=== PATIENT | male | born 1955 | race Two or more races ===

== ENCOUNTER 2018-07-05 11:05 | Inpatient (IN) | payer OTHER ==
[~2018-07-05] VITALS: Ht 170.2 cm; Wt 68.5 kg
--- NOTE | 2018-07-05 11:10 | NUR ---
VALERI FROM [facility]: SENT BY PMD FOR LEFT FOOT WOUND DEBRIDEMENT. PATIENT IS AWAKE AND ALERT. NOT IN DISTRESS. AFEBRILE. LEFT FOOT NOTED WITH OPEN WOUND, GREENISH AND REDDISH IN COLOR. VSS.
[2018-07-05 11:56] LABS: BASOPHILS # (AUTO) 0.1 /CMM (0.0-0.2); BASOPHILS % (AUTO) 0.8 % (0.0-2.0); EOSINOPHILS % (AUTO) 1.2 % (0.0-6.0); HEMATOCRIT 32 % (39-51); HEMOGLOBIN 10.9 g/dL (13.5-17.5); LYMPHOCYTES # (AUTO) 1.2 /CMM (0.8-4.8); LYMPHOCYTES % (AUTO) 6.9 % (20.0-44.0); MEAN CORPUSCULAR HGB CONC 34 g/dl (31.0-36.0); MEAN CORPUSCULAR VOLUME 84 fL (80-96); MONOCYTES # (AUTO) 0.5 /CMM (0.1-1.30); MONOCYTES % (AUTO) 2.9 % (2.0-12.0); NEUTROPHILS # (AUTO) 14.9 /CMM (1.8-8.9); NEUTROPHILS % (AUTO) 88.2 % (43.0-81.0); RDW COEFFICIENT OF VARIATION 18.1 (11.5-15.0); RED BLOOD CELL COUNT(AUTO) 3.82 MIL/uL (4.5-6.0); WHITE BLOOD COUNT (AUTO) 16.9 K/uL (4.3-11.0)
[2018-07-05 11:57] LABS: PLATELET COUNT (AUTO) 905 /CMM (150-450)
--- NOTE | 2018-07-05 11:57 | NUR ---
IV ACCESS STARTED. BLOOD DRAWN FOR LABS BY REEL HOOKER.
[2018-07-05 12:03] LABS: CALCIUM, SERUM 8.1 mg/dL (8.5-10.1); CREATININE 1.4 mg/dL (0.6-1.3); POTASSIUM 3.9 mmol/L (3.5-5.1)
[2018-07-05 12:08] LABS: INR 0.95 (0.85-1.15)
[2018-07-05 12:09] LABS: ALBUMIN 2.2 g/dL (3.4-5.0); BILIRUBIN,TOTAL 0.2 mg/dL (0.2-1.0); TOTAL PROTEIN, SERUM 7.1 g/dL (6.4-8.2)
[2018-07-05] MEDS ORDERED: CLON0.3P TD (12:19)
[2018-07-05] MEDS ORDERED: ASPI-1169 PO (12:19)
[2018-07-05] MEDS ORDERED: BLOO-668 IN (12:19)
[2018-07-05] MEDS ORDERED: TAMS-12 PO (12:19)
[2018-07-05] MEDS ORDERED: MULT-447 PO (12:19)
[2018-07-05] MEDS ORDERED: ALLO100T PO (12:19)
[2018-07-05] MEDS ORDERED: INSU100V27 SQ (12:19)
[2018-07-05] MEDS ORDERED: ASCO500T9 PO (12:19)
[2018-07-05] MEDS ORDERED: PANT40TA4 PO (12:19)
[2018-07-05] MEDS ORDERED: BISA10SU8 RC (12:19)
[2018-07-05] MEDS ORDERED: SENN-167 PO (12:19)
[2018-07-05] MEDS ORDERED: ISOS30TA6 PO (12:19)
[2018-07-05] MEDS ORDERED: ACET-868 PO ×2 (12:19)
[2018-07-05] MEDS ORDERED: FERR325T23 PO (12:19)
[2018-07-05] MEDS ORDERED: IPRA3AMP23 IH (12:19)
[2018-07-05] MEDS ORDERED: ARGI1POW13 PO (12:19)
[2018-07-05] MEDS ORDERED: INSU100V7 SQ (12:19)
[2018-07-05] MEDS ORDERED: FEBU80TA PO (12:19)
[2018-07-05] MEDS ORDERED: AMIN30LI4 PO (12:19)
[2018-07-05] MEDS ORDERED: HYDR-552 PO (12:19)
[2018-07-05] MEDS ORDERED: HYDR100T27 PO (12:19)
[2018-07-05] MEDS ORDERED: DOCU-141 PO (12:19)
[2018-07-05] MEDS ORDERED: LEVO50TA8 PO (12:19)
[2018-07-05] MEDS ORDERED: OMEG1CAP PO (12:19)
[2018-07-05] MEDS ORDERED: MEGE40TA PO (12:19)
[2018-07-05] MEDS ORDERED: SENNOSIDES 8.6 MG TABLET PO PRN ×2 (12:30→13:45)
[2018-07-05] MEDS ORDERED: HYDROCODONE/APAP 5/325MG 1 EACH TABLET PO PRN ×4 (12:30→13:45)
[2018-07-05] MEDS ORDERED: BISACODYL SUPP (10 MG) 10 MG/SUPP.RECT SUPP.RECT RC PRN ×2 (12:30→13:45)
[2018-07-05] MEDS ORDERED: BLOOD SUGAR DIAGNOSTIC 1 EACH STRIP IN SCH (12:30)
[2018-07-05] MEDS ORDERED: ACETAMINOPHEN 325 MG TABLET PO PRN ×2 (12:30→13:45)
--- NOTE | 2018-07-05 12:48 | NUR ---
REPORT GIVEN TO ADIN WASHINGTON FOR MS [id number].
[2018-07-05] MEDS ORDERED: hydrALAZINE HCL 10 MG TABLET PO ONE ×2 (13:00)
[2018-07-05] MEDS ORDERED: VANCOMYCIN 1 GM in IV D5W 250 ML IV SCH (13:00)
[2018-07-05 16:00] VITALS: BP 136/54
[2018-07-05] MEDS ORDERED: VANCOMYCIN 1 GM in IV D5W 250 ML IV ONE (16:00)
[2018-07-05] MEDS ORDERED: FEE PK DOSING 1 MIN EA MC ONE (16:23)
[2018-07-05] MEDS ORDERED: FERROUS SULFATE (325 MG) 325 MG/TAB TABLET PO SCH (17:00)
[2018-07-05] MEDS: MEGESTROL ACETATE 40 MG TABLET PO SCH (17:00)
[2018-07-05] MEDS ORDERED: DOCUSATE SODIUM 100 MG CAPSULE PO SCH (17:00)
[2018-07-05] MEDS: DOCUSATE SODIUM 100 MG CAPSULE PO SCH (17:00)
[2018-07-05] MEDS ORDERED: MEGESTROL ACETATE 40 MG TABLET PO SCH (17:00)
--- NOTE | 2018-07-05 17:04 | NUR ---
MS RN NOTES: PAIN MEDICATION ORDER DR. ROBERTS NOTIFIED OF PT'S CURRENT PAIN MANAGEMENT AND HOW IT IS NOT EFFECTIVE FOR THE PT'S CURRENT PAIN LEVEL RATED A 6/10. PER MD, ORDER "NORCO [id number] Q6HR" ORDER IMPUTED. WILL ADMINISTER MEDICATION
[2018-07-05] MEDS: BLOOD SUGAR DIAGNOSTIC 1 EACH STRIP IN SCH ×2 (17:33→21:43)
[2018-07-05] MEDS: FERROUS SULFATE (325 MG) 325 MG/TAB TABLET PO SCH (17:35)
[2018-07-05] MEDS: HYDROCODONE/APAP 5/325MG 1 EACH TABLET PO PRN (17:36)
[2018-07-05] MEDS: INSULIN REGULAR, HUMAN 100 UNIT/ML 3 ML VIAL SQ PRN ×2 (17:52→21:48)
[2018-07-05] MEDS ORDERED: DEXTROSE 50%-WATER 50 ML DISP.SYRIN IV PRN (18:00)
[2018-07-05] MEDS ORDERED: PIPERACILLIN /TAZOBACTAM 4.5 G in IV D5W 50 ML IV SCH (18:00)
--- NOTE | 2018-07-05 18:37 | NUR ---
MS RN CLOSING NOTES PT REMAINS STABLE. ALL NEEDS WERE MET DURING SHIFT AND ORDERS CARRIED OUT ACCORDINGLY. ALL DUE MEDS GIVEN. PRN SKIN CARE RENDERED. IV REMAINS PATENT AND INTACT. PT TOLERATING IV ABX WELL. AWAITING WOUND CONSULT FOR DEBRIDEMENT. SAFETY MEASURES REMAIN IN PLACE. WILL ENDORSE TO NIGHTSHIFT NURSE FOR RODERICK
[2018-07-05] MEDS: PIPERACILLIN /TAZOBACTAM 4.5 G in IV D5W 50 ML IV SCH ×2 (18:53→23:28)
--- NOTE | 2018-07-05 19:10 | NUR ---
MS RN INITIAL NOTES Received patient A/OX3, on supine position on bed, with patient peripheral IV line RFA G#20, SL. On RA, no SOB/respiratory distress noted. No complaint made at this time. Kept on bed comfortable. Will continue to monitor accordingly.
[2018-07-05 20:09] VITALS: BP 133/58
[2018-07-06] MEDS: VANCOMYCIN 0.75 GM in IV D5W 250 ML IV SCH ×2 (03:05→15:42)
[2018-07-06] MEDS ORDERED: VANCOMYCIN 1 GM in IV D5W 250 ML IV SCH (04:00)
[2018-07-06] MEDS: PIPERACILLIN /TAZOBACTAM 4.5 G in IV D5W 50 ML IV SCH ×4 (05:13→23:03)
[2018-07-06] MEDS: BLOOD SUGAR DIAGNOSTIC 1 EACH STRIP IN SCH ×4 (06:31→21:01)
[2018-07-06] MEDS: INSULIN REGULAR, HUMAN 100 UNIT/ML 3 ML VIAL SQ PRN ×4 (06:31→21:01)
--- NOTE | 2018-07-06 07:04 | NUR ---
MS RN CLOSING NOTES Patient asleep on semi-Lee's position, with patent peripheral IV line RFA G#20 SL. No new complaints made. Afebrile the whole shift. All needs attended. Call light within easy reach. Endorsed.
--- NOTE | 2018-07-06 07:26 | NUR ---
MS RN OPENING NOTES PATIENT RECEIVED AWAKE IN BED IN NO ACUTE SIGNS OF DISTRESS. HOB ELEVATED. A/O X3. ABLE TO MAKE NEEDS KNOWN, DENIES PAIN OR ANY DISCOMFORTS AT THIS TIME. ON ROOM AIR, BREATHING EVEN AND UNLABORED. IV ACCESS ON RFA INTACT AND PATENT, SL WITH NO REDNESS AT SITE AND NO S/S OF INFILTRATIONS NOTED. ALL SAFETY MEASURES IN PLACE. BED IN LOW/LOCKED POSITION WITH SR UP X2. CALL LIGHT WITHIN REACH. WILL CONTINUE TO MONITOR
[2018-07-06] MEDS ORDERED: LEVOTHYROXINE SODIUM 50 MCG TABLET PO SCH (07:30)
[2018-07-06] MEDS ORDERED: PANTOPRAZOLE 40 MG TABLET.DR PO SCH (07:30)
[2018-07-06 07:39] LABS: CALCIUM, SERUM 8.4 mg/dL (8.5-10.1); CREATININE 1.4 mg/dL (0.6-1.3); POTASSIUM 3.9 mmol/L (3.5-5.1)
[2018-07-06] MEDS: LEVOTHYROXINE SODIUM 50 MCG TABLET PO SCH (07:40)
[2018-07-06] MEDS: PANTOPRAZOLE 40 MG TABLET.DR PO SCH (07:40)
[2018-07-06 08:00] VITALS: BP 136/61
[2018-07-06] MEDS: FERROUS SULFATE (325 MG) 325 MG/TAB TABLET PO SCH ×2 (08:27→17:23)
[2018-07-06] MEDS: MULTIVITAMINS,THERAGRAN 1 UDTAB TABLET PO SCH (08:28)
[2018-07-06] MEDS: ASPIRIN 81 MG TAB.CHEW PO SCH (08:28)
[2018-07-06] MEDS: MEGESTROL ACETATE 40 MG TABLET PO SCH ×2 (08:28→17:23)
[2018-07-06] MEDS: DOCUSATE SODIUM 100 MG CAPSULE PO SCH ×2 (08:28→17:23)
[2018-07-06] MEDS: ISOSORBIDE MONONITRATE (30MG) 30 MG TAB.SR.24H PO SCH (08:28)
[2018-07-06] MEDS: ALLOPURINOL 100 MG TABLET PO SCH (08:29)
[2018-07-06] MEDS: TAMSULOSIN 0.4 MG CAP.SR.24H PO SCH (08:29)
[2018-07-06] MEDS ORDERED: MULTIVITAMINS,THERAGRAN 1 UDTAB TABLET PO SCH (09:00)
[2018-07-06] MEDS ORDERED: ISOSORBIDE MONONITRATE (30MG) 30 MG TAB.SR.24H PO SCH (09:00)
[2018-07-06] MEDS ORDERED: TAMSULOSIN 0.4 MG CAP.SR.24H PO SCH (09:00)
[2018-07-06] MEDS ORDERED: ASPIRIN 81 MG TAB.CHEW PO SCH (09:00)
[2018-07-06] MEDS ORDERED: ASCORBIC ACID 500 MG TABLET PO SCH (09:00)
[2018-07-06] MEDS ORDERED: ALLOPURINOL 100 MG TABLET PO SCH (09:00)
[2018-07-06] MEDS ORDERED: INSULIN GLARGINE, 100 UNIT/ML CARTRIDGE SQ SCH (09:00)
[2018-07-06] MEDS: ASCORBIC ACID 500 MG TABLET PO SCH (09:11)
--- NOTE | 2018-07-06 10:03 | NUR ---
WOUND CARE CONSULT: PT PRESENTS WITH MULTIPLE WOUNDS TO LEFT LOWER EXTREMITY AND STAGE 3 SACRAL ULCER, PRESENT ON ADMISSION. PER ESTIMATOR PROJECT MANAGER, PT SENT BY DR TOURE FOR LOWER EXTREMITY WOUNDS. DEFER TO DPM. RECOMMEND SURGICAL CONSULT. RECOMMENDATIONS MADE FOR SACRAL WOUND CARE AND SKIN PROTECTION. DISCUSSED WITH NURSING STAFF. LOW AIRLOSS BED TO BE PLACED. WILL SEE PRN. IN AGREEMENT WITH PLAN OF CARE. MD IN AGREEMENT WITH PLAN OF CARE. Addendum: 07/06/18 at 1006 by YESI TIDWELL WNDNU Amended: Links added.
[2018-07-06] MEDS ORDERED: Z GUARD REMEDY 2 OZ OINT TP PRN (10:30)
[2018-07-06] MEDS ORDERED: HYDROGEL DRESSING 90 GM TUBE TP PRN (10:30)
--- NOTE | 2018-07-06 11:36 | NUR ---
RN NOTES PATIENT FOR LEFT FOOT DEBRIDEMENT OF ULCERATION. ALLOGRAFT APPLICATION, POSSIBLE WOUND VAC APPLICATION TODAY. EXPLAINED PROCEDURE TO PT AND AGREEABLE. CALLED PT'S BROTHER MARCIANO PERAZA AT [employer] # [phone] AND CONSENTED TO THE PROCEDURE AND WAS CONFIRMED BY ANOTHER NURSE LENCHO OLIVEIRA. PT PLACED ON NPO. WILL CONTINUE TO MONITOR.
[2018-07-06] MEDS: HYDROGEL DRESSING 90 GM TUBE TP SCH (13:22)
[2018-07-06 16:00] VITALS: BP 154/72
--- NOTE | 2018-07-06 16:15 | NUR ---
RN NOTES IV ACCESS ON RFA LEAKING, REMOVED AND APPLIED PRESSURE GAUZE. NEW IV ACCESS INSERTED AT RIGHT HAND G# 22 AND SECURED WITH TAPE. WILL CONTINUE TO MONITOR.
[2018-07-06] MEDS: LACTOBACILLUS RHAMNOSUS GG 1 EACH CAP.SPRINK PO SCH (17:23)
--- NOTE | 2018-07-06 18:30 | NUR ---
MS RN CLOSING NOTES PATIENT IN BED RESTING AT MODERATE HIGH BACKREST POSITION. A/O X3, SAME ABLE TO MAKE NEEDS KNOWN. PT TOLERATING ROOM AIR WITH NO ACUTE RESPIRATORY DISTRESS NOTED. PT FOR LEFT FOOT WOUND DEBRIDEMENT BY DR DONALD ON MONDAY, CONSENT SIGNED AND NPO POST MIDNIGHT THE PROCEDURE TO BE ENFORCED. PT ENCOURAGED TO TURN AND REPOSITION SELF FROM SIDE TO SIDE WHEN IN BED, ASSISTED WHEN NEEDED. IV ACCESS ON RIGHT HAND G @22 INTACT AND PATENT, SL ONLY AND EASILY FLUSHED WITH NS. ALL SAFETY MEASURES KEPT IN PLACE. BED IN LOW/LOCKED POSITION WITH SR UP X2. CALL LIGHT WITHIN REACH. WILL ENDORSE TO GROUP FITNESS DEPARTMENT HEAD NURSE FOR RODERICK.
--- NOTE | 2018-07-06 19:00 | NUR ---
MS RN OPENING NOTE RECEIVE PATIENT AWAKE IN BED, A/O X 3, NO SOB OR DISTRESS NOTED, CALL LIGHT WITHIN REACH. SAFETY MEASURES IMPLEMENTED. WILL CONTINUE TO MONITOR THROUGHOUT SHIFT.
[2018-07-06 20:00] VITALS: BP 147/75
--- NOTE | 2018-07-06 21:36 | NUR ---
MS RN PT REFUSED R INSULIN 3 UNITS COVERAGE DESPITE EXPLAINING RISKS AND BENEFITS OFFERED 3 TIMES STILL REFUSED. BLOOD SUGAR 185 MG/DL
--- NOTE | 2018-07-06 22:21 | NUR ---
Patient is alert,resides at [facility] conv [phone]. He is admitted for debridement of left foot wound and wound care mgt. He plan to return to SNF once discharge. Addendum: 07/06/18 at 2221 by SHERRILL LERNER RN Amended: Links added.
[2018-07-07] MEDS: HYDROCODONE/APAP 5/325MG 1 EACH TABLET PO PRN (01:19)
[2018-07-07] MEDS: VANCOMYCIN 0.75 GM in IV D5W 250 ML IV SCH ×2 (03:47→16:00)
[2018-07-07] MEDS: PIPERACILLIN /TAZOBACTAM 4.5 G in IV D5W 50 ML IV SCH ×4 (05:05→23:42)
[2018-07-07] MEDS: BLOOD SUGAR DIAGNOSTIC 1 EACH STRIP IN SCH ×4 (05:52→21:25)
[2018-07-07] MEDS: INSULIN REGULAR, HUMAN 100 UNIT/ML 3 ML VIAL SQ PRN ×3 (05:53→17:28)
--- NOTE | 2018-07-07 06:06 | NUR ---
MS RN PT REFUSED R INSULIN 3 UNITS COVERAGE DESPITE EXPLAINING RISKS AND BENEFITS OFFERED 3 TIMES STILL REFUSED. BLOOD SUGAR 161 MG/DL
--- NOTE | 2018-07-07 06:11 | NUR ---
MS RN CLOSING NOTES ASLEEP AND EASILY AWAKEN, STABLE, TOLERATING ROOM AIR 98%. NOT IN DISTRESS. RESPIRATION EVEN AND UNLABORED. KEPT CLEAN AND DRY AND COMFORTABLE, ALL NURSING CARE RENDERED. NEEDS ATTENDED AND ANTICIPATED. TREATMENT ORDERED TO THE WOUND GOOD SKIN CARE. ON LOW BED AT ALL TIMES TO ENSURE SAFETY. SAFE HAZARD FREE ENVIRONMENT PROVIDED. CALL LIGHT WITHIN EASY TO REACH. WILL ENDORSE NEXT SHIFT CONTINUITY OF CARE.
--- NOTE | 2018-07-07 07:10 | NUR ---
MS RN OPENING NOTE RECEIVED PT IN BED SLEEPING, BREATHING IS EVEN AND UNLABORED ON ROOM AIR, NO SIGNS OF ACUTE DISTRESS AT THIS TIME. R HAND #22G IV IS SALINE LOCKED, CLEAN, DRY AND INTACT. BED IS LOCKED AND IN LOWEST POSITION, SIDE RAILS UP X2, CALL LIGHT IS WITHIN REACH.
[2018-07-07 07:28] LABS: BASOPHILS % (AUTO) 0.2 % (0.0-2.0); EOSINOPHILS % (AUTO) 2.4 % (0.0-6.0); HEMATOCRIT 28 % (39-51); HEMOGLOBIN 9.1 g/dL (13.5-17.5); LYMPHOCYTES # (AUTO) 1.6 /CMM (0.8-4.8); LYMPHOCYTES % (AUTO) 10.8 % (20.0-44.0); MEAN CORPUSCULAR HGB CONC 33 g/dl (31.0-36.0); MEAN CORPUSCULAR VOLUME 87 fL (80-96); MONOCYTES # (AUTO) 0.7 /CMM (0.1-1.30); MONOCYTES % (AUTO) 4.8 % (2.0-12.0); NEUTROPHILS # (AUTO) 11.8 /CMM (1.8-8.9); NEUTROPHILS % (AUTO) 81.8 % (43.0-81.0); PLATELET COUNT (AUTO) 802 /CMM (150-450); RDW COEFFICIENT OF VARIATION 20.3 (11.5-15.0); WHITE BLOOD COUNT (AUTO) 14.4 K/uL (4.3-11.0)
[2018-07-07] MEDS: PANTOPRAZOLE 40 MG TABLET.DR PO SCH (07:30)
[2018-07-07 07:35] LABS: CALCIUM, SERUM 8.3 mg/dL (8.5-10.1); CREATININE 1.4 mg/dL (0.6-1.3); MAGNESIUM 1.8 mg/dL (1.8-2.4); PHOSPHORUS 4.3 mg/dL (2.5-4.9); POTASSIUM 3.6 mmol/L (3.5-5.1)
[2018-07-07 08:00] VITALS: BP 151/71
[2018-07-07] MEDS: LEVOTHYROXINE SODIUM 50 MCG TABLET PO SCH (08:06)
--- NOTE | 2018-07-07 08:28 | NUR ---
MS RN NON ADMINISTRATION NOTE PT REFUSED THERA M, VITAMIN C, MEGACE, AND COLACE THIS MORNING. PROVIDED EDUCATION OF RISKS AND BENEFITS, PT STILL REFUSED MEDICATION.
[2018-07-07] MEDS: DOCUSATE SODIUM 100 MG CAPSULE PO SCH ×2 (08:43→17:00)
[2018-07-07] MEDS: ASPIRIN 81 MG TAB.CHEW PO SCH (08:43)
[2018-07-07] MEDS: TAMSULOSIN 0.4 MG CAP.SR.24H PO SCH (08:43)
[2018-07-07] MEDS: ALLOPURINOL 100 MG TABLET PO SCH (08:43)
[2018-07-07] MEDS: HYDROGEL DRESSING 90 GM TUBE TP SCH (08:43)
[2018-07-07] MEDS: FERROUS SULFATE (325 MG) 325 MG/TAB TABLET PO SCH ×2 (08:43→17:23)
[2018-07-07] MEDS: LACTOBACILLUS RHAMNOSUS GG 1 EACH CAP.SPRINK PO SCH ×2 (08:44→17:23)
[2018-07-07] MEDS: ASCORBIC ACID 500 MG TABLET PO SCH (08:44)
[2018-07-07] MEDS: MULTIVITAMINS,THERAGRAN 1 UDTAB TABLET PO SCH (08:44)
[2018-07-07] MEDS: MEGESTROL ACETATE 40 MG TABLET PO SCH ×2 (08:44→17:00)
[2018-07-07] MEDS: ISOSORBIDE MONONITRATE (30MG) 30 MG TAB.SR.24H PO SCH (08:48)
[2018-07-07 16:00] VITALS: BP 163/70
--- NOTE | 2018-07-07 16:35 | NUR ---
MS FELIX VANCOMYCIN HELD VANCOMYCIN TROUGH @1500 CAME BACK 25. NOTIFIED IVANNA FROM [facility]. CONFIRMED THAT 1600 VANCOMYCIN WILL BE HELD.
--- NOTE | 2018-07-07 18:54 | NUR ---
MS RN CLOSING NOTE PT IN BED, ALERT AND ORIENTED X 4, DENIES N/V, CHEST PAIN, SOB. BREATHING IS EVEN AND UNLABORED ON ROOM AIR. R HAND #22G IV IS SALINE LOCKED, CLEAN, DRY AND INTACT. WOUND CARE PROVIDED ORDERED, SAFETY PRECAUTIONS MAINTAINED. PT IS SCHEDULED FOR A WOUND DEBRIDEMENT ON Monday07/09/[address] TOURE AND WILL NEED TO BE NPO @ MIDNIGHT STARTING 07/08/2018. BED IS LOCKED AND IN LOWEST POSITION, SIDE RAILS UP X2, CALL LIGHT IS WITHIN REACH. WILL ENDORSE TO WORKERS COMPENSATION ATTORNEY RN FOR CONTINUITY OF CARE.
--- NOTE | 2018-07-07 19:25 | NUR ---
MS RN NOTE RECEIVED PATIENT FROM DAY SHIFT, PATIENT IS ALERT AND ORIENTEDX3, DENIES RESPIRATORY DISTRESS AND PAIN AT THIS TIME. IV ON RIGHT HAND IS PATENT AND INTACT, SL ONLY. LEFT FOOT IS COVERED WITH DRESSING DUE TO ULCER, PLANNING TO HAVE SURGICAL DEBRIDEMENT ON MONDAY. SRX2, BED IN LOW POSITION, CALL LIGHT WITHIN REACH, WILL CONTINUE TO MONITOR PATIENT.
[2018-07-07 20:00] VITALS: BP 165/70
--- NOTE | 2018-07-07 22:18 | NUR ---
MS RN NOTE PATIENT'S BS IS 144MG/DL, 2 UNITS NEEDS TO BE GIVEN, BUT PT STATED 'I GOT TOO MUCH INSULIN, NO MORE AT THIS TIME, RECHECK IN THE MORNING.' PT STILL REFUSED TO GET INSULIN AFTER EXPLAINING RISKS AND BENEFITS, WILL RECHECK IN AM.
[2018-07-08] MEDS: PIPERACILLIN /TAZOBACTAM 4.5 G in IV D5W 50 ML IV SCH ×4 (05:01→23:42)
[2018-07-08] MEDS: VANCOMYCIN 0.75 GM in IV D5W 250 ML IV SCH (05:47)
[2018-07-08] MEDS: BLOOD SUGAR DIAGNOSTIC 1 EACH STRIP IN SCH ×4 (06:15→21:44)
--- NOTE | 2018-07-08 06:37 | NUR ---
MS RN NOTE PATIENT IS SLEEPING IN BED COMFORTABLY, NO S/S OF RESPIRATORY DISTRESS AND DENIES PAIN AT THIS TIME. IV ON RIGHT HAND IS PATENT AND INTACT, SL ONLY. WILL ENDORSE TO DAY SHIFT NURSE FOR RODERICK.
[2018-07-08 07:18] LABS: BASOPHILS # (AUTO) 0.1 /CMM (0.0-0.2); EOSINOPHILS % (AUTO) 3.2 % (0.0-6.0); HEMATOCRIT 29 % (39-51); HEMOGLOBIN 9.6 g/dL (13.5-17.5); LYMPHOCYTES # (AUTO) 1.7 /CMM (0.8-4.8); LYMPHOCYTES % (AUTO) 13.7 % (20.0-44.0); MEAN CORPUSCULAR HGB CONC 33 g/dl (31.0-36.0); MEAN CORPUSCULAR VOLUME 87 fL (80-96); MONOCYTES # (AUTO) 0.7 /CMM (0.1-1.30); MONOCYTES % (AUTO) 5.9 % (2.0-12.0); NEUTROPHILS # (AUTO) 9.7 /CMM (1.8-8.9); NEUTROPHILS % (AUTO) 76.2 % (43.0-81.0); PLATELET COUNT (AUTO) 800 /CMM (150-450); RDW COEFFICIENT OF VARIATION 19.9 (11.5-15.0); RED BLOOD CELL COUNT(AUTO) 3.37 MIL/uL (4.5-6.0); WHITE BLOOD COUNT (AUTO) 12.7 K/uL (4.3-11.0)
[2018-07-08 07:33] LABS: CALCIUM, SERUM 8.1 mg/dL (8.5-10.1); CREATININE 1.3 mg/dL (0.6-1.3); POTASSIUM 3.7 mmol/L (3.5-5.1)
--- NOTE | 2018-07-08 07:41 | NUR ---
MS RN NOTES PATIENT RECEIVED RESTING INSIDE ROOM. AWAKE, ALERT AND ORIENTED. VERBALLY RESPONSIVE AND RESPONDS TO VERBAL AND TACTILE STIMULI. BREATHING EVEN AND UNLABORED. NO SOB OR ACUTE DISTRESS. DENIES ANY PAIN OR DISCOMFORT. NO CHANGES IN LOC NOTED. IV INTACT AND PATENT. WILL CONTINUE TO MONITOR. BED LOCKED AND IN LOW POSITION. BILATERAL UPPER SIDE RAILS UP AND LOCKED. CALL LIGHT WITHIN EASY REACH
[2018-07-08 08:00] VITALS: BP 156/68
[2018-07-08] MEDS: MEGESTROL ACETATE 40 MG TABLET PO SCH ×2 (08:50→17:40)
[2018-07-08] MEDS: ASPIRIN 81 MG TAB.CHEW PO SCH (08:50)
[2018-07-08] MEDS: TAMSULOSIN 0.4 MG CAP.SR.24H PO SCH (08:50)
[2018-07-08] MEDS: ASCORBIC ACID 500 MG TABLET PO SCH (08:50)
[2018-07-08] MEDS: PANTOPRAZOLE 40 MG TABLET.DR PO SCH (08:50)
[2018-07-08] MEDS: LEVOTHYROXINE SODIUM 50 MCG TABLET PO SCH (08:50)
[2018-07-08] MEDS: MULTIVITAMINS,THERAGRAN 1 UDTAB TABLET PO SCH (08:51)
[2018-07-08] MEDS: DOCUSATE SODIUM 100 MG CAPSULE PO SCH ×2 (08:51→17:40)
[2018-07-08] MEDS: FERROUS SULFATE (325 MG) 325 MG/TAB TABLET PO SCH ×2 (08:51→17:40)
[2018-07-08] MEDS: LACTOBACILLUS RHAMNOSUS GG 1 EACH CAP.SPRINK PO SCH ×2 (08:51→17:40)
[2018-07-08] MEDS: ALLOPURINOL 100 MG TABLET PO SCH (08:51)
[2018-07-08] MEDS: ISOSORBIDE MONONITRATE (30MG) 30 MG TAB.SR.24H PO SCH (08:51)
[2018-07-08] MEDS: HYDROGEL DRESSING 90 GM TUBE TP SCH (08:52)
[2018-07-08] MEDS: INSULIN REGULAR, HUMAN 100 UNIT/ML 3 ML VIAL SQ PRN ×3 (12:12→21:47)
[2018-07-08 16:00] VITALS: BP 158/67
--- NOTE | 2018-07-08 18:57 | NUR ---
MS RN NOTES PATIENT RESTING INSIDE ROOM. AWAKE, ALERT AND ORIENTED. VERBALLY RESPONSIVE AND RESPONDS TO VERBAL AND TACTILE STIMULI. BREATHING EVEN AND UNLABORED. NO SOB OR ACUTE DISTRESS NOTED. NO CHANGES IN LOC NOTED. IV INTACT AND PATENT. DENIES ANY PAIN OR DISCOMFORT. PATIENT TO BE NPO AFTER MIDNIGHT. WITH PLAN FOR SURGICAL DEBRIDEMENT IN AM. PATIENT MADE AWARE AND VERBALIZED UNDERSTANDING. WILL ENDORSE TO INCOMING SHIFT FOR RODERICK. BED LOCKED AND IN LOW POSITION. BILATERAL UPPER SIDE RAILS UP AND LOCKED. CALL LIGHT WITHIN EASY REACH
--- NOTE | 2018-07-08 19:00 | NUR ---
recieved alert and orientated. brother at the bedside. noted dresiing left leg wrapped. pt is aware he is scheduled for early am surgery to have a debridment
[2018-07-08] MEDS: HYDROCODONE/APAP 5/325MG 1 EACH TABLET PO PRN (20:38)
[2018-07-08 20:41] VITALS: BP 162/71
[2018-07-08 21:00] VITALS: BP 162/71
[2018-07-09] VITALS (11 sets, daily range): BP systolic 143–167; BP diastolic 59–74
[2018-07-09 05:33] LABS: CALCIUM, SERUM 8.2 mg/dL (8.5-10.1); CREATININE 1.4 mg/dL (0.6-1.3); POTASSIUM 3.8 mmol/L (3.5-5.1)
[2018-07-09] MEDS: PIPERACILLIN /TAZOBACTAM 4.5 G in IV D5W 50 ML IV SCH ×2 (05:54→12:24)
[2018-07-09 06:08] LABS: BASOPHILS # (AUTO) 0.2 /CMM (0.0-0.2); BASOPHILS % (AUTO) 1.2 % (0.0-2.0); HEMATOCRIT 29 % (39-51); HEMOGLOBIN 9.4 g/dL (13.5-17.5); LYMPHOCYTES # (AUTO) 2.3 /CMM (0.8-4.8); LYMPHOCYTES % (AUTO) 18.3 % (20.0-44.0); MEAN CORPUSCULAR HGB CONC 32 g/dl (31.0-36.0); MEAN CORPUSCULAR VOLUME 87 fL (80-96); MONOCYTES # (AUTO) 0.7 /CMM (0.1-1.30); MONOCYTES % (AUTO) 5.7 % (2.0-12.0); NEUTROPHILS # (AUTO) 9.2 /CMM (1.8-8.9); NEUTROPHILS % (AUTO) 72.8 % (43.0-81.0); PLATELET COUNT (AUTO) 779 /CMM (150-450); RDW COEFFICIENT OF VARIATION 19.5 (11.5-15.0); RED BLOOD CELL COUNT(AUTO) 3.34 MIL/uL (4.5-6.0); WHITE BLOOD COUNT (AUTO) 12.6 K/uL (4.3-11.0)
[2018-07-09] MEDS: BLOOD SUGAR DIAGNOSTIC 1 EACH STRIP IN SCH ×4 (06:18→12:24)
[2018-07-09] MEDS: VANCOMYCIN 0.75 GM in IV D5W 250 ML IV SCH (06:18)
[2018-07-09] MEDS: INSULIN REGULAR, HUMAN 100 UNIT/ML 3 ML VIAL SQ PRN ×2 (06:19→12:25)
--- NOTE | 2018-07-09 06:22 | NUR ---
ending notes: npo thru the night. incontinent stool and uriine. dressing left leg removed wound cleande and redressed bs 129 this am ready for surgery
--- NOTE | 2018-07-09 06:42 | NUR ---
patients last vanco level 24 called the pharm and alerted them to the level Tiarra the pharm ordered me to order a random vanco level in the am resuklts were 13 vanco hung.
[2018-07-09] MEDS ORDERED: ANESTHESIA TRAY IN PYXIS 1 EA TRAY MC ONE (06:44)
[2018-07-09] MEDS ORDERED: BUPIVACAINE MPF 0.5% W/EPI INJ 30 ML VIAL ONE ×2 (06:44→06:45)
[2018-07-09] MEDS ORDERED: LIDOCAINE HCL/PF 1% 30 ML SDV ONE (06:44)
--- NOTE | 2018-07-09 07:10 | NUR ---
MS RN NOTES PATIENT RECEIVED ON BED. AWAKE, ALERT AND ORIENTED. VERBALLY RESPONSIVE AND RESPONDS TO VERBAL AND TACTILE STIMULI. BREATHING EVEN AND UNLABORED. NO SOB OR ACUTE DISTRESS NOTED. DENIES ANY PAIN OR DISCOMFORT. IV INTACT AND PATENT. SURGICAL STAFF PRESENT AT UNIT TO TAKE PATIENT FOR SURGERY. PATIENT NPO SINCE MIDNIGHT PER PREVIOUS SHIFT. FSBS TAKEN BY PREVIOUS SHIFT. WILL CONTINUE TO MONITOR
[2018-07-09] MEDS ORDERED: FENTANYL PF 100MCG/2ML AMPUL ONE (07:25)
[2018-07-09] MEDS: DOCUSATE SODIUM 100 MG CAPSULE PO SCH (09:07)
[2018-07-09] MEDS: TAMSULOSIN 0.4 MG CAP.SR.24H PO SCH (09:07)
[2018-07-09] MEDS: MEGESTROL ACETATE 40 MG TABLET PO SCH (09:07)
[2018-07-09] MEDS: ASCORBIC ACID 500 MG TABLET PO SCH (09:07)
[2018-07-09] MEDS: ISOSORBIDE MONONITRATE (30MG) 30 MG TAB.SR.24H PO SCH (09:07)
[2018-07-09] MEDS: MULTIVITAMINS,THERAGRAN 1 UDTAB TABLET PO SCH (09:07)
[2018-07-09] MEDS: PANTOPRAZOLE 40 MG TABLET.DR PO SCH (09:07)
[2018-07-09] MEDS: LACTOBACILLUS RHAMNOSUS GG 1 EACH CAP.SPRINK PO SCH (09:07)
[2018-07-09] MEDS: ALLOPURINOL 100 MG TABLET PO SCH (09:08)
[2018-07-09] MEDS: FERROUS SULFATE (325 MG) 325 MG/TAB TABLET PO SCH (09:08)
[2018-07-09] MEDS: ASPIRIN 81 MG TAB.CHEW PO SCH (09:08)
[2018-07-09] MEDS: HYDROGEL DRESSING 90 GM TUBE TP SCH (09:10)
[2018-07-09] MEDS: LEVOTHYROXINE SODIUM 50 MCG TABLET PO SCH (09:12)
--- NOTE | 2018-07-09 12:00 | NUR ---
MS RN NOTES PATIENT WITH ORDER FROM DR. ASHRAF FOR PICCLINE INSERTION. VERIFIED TELEPHONE CONSENT OBTAINED FROM PATIENT AND ANDREW PERAZA, BROTHER BY AND WITNESSED BY LICENSED STAFF. WILL CONTINUE TO MONITOR
--- NOTE | 2018-07-09 15:00 | NUR ---
MS RN NOTES PATIENT S/P PICCLINE INSERTION ON LEFT BASILIC, DRESSING IN PLACE. NO BLEEDING NOTED. WILL CONTINUE TO MONITOR
--- NOTE | 2018-07-09 16:45 | NUR ---
MS RN NOTES PATIENT ORDER FROM DR. ASHRAF TO DISCHARGE TO [facility] TODAY. RECEIVED CALL FROM SINGE WINDER THAT PROTOTYPE ENGINEER TIME AT 1700. PATIENT MADE AWARE AND VERBALIZED UNDERSTANDING. VERIFIED ATB TX WITH INFECTIOUS DISEASE WITH ORDERS TO START LEVAQUIN 500MG PO QD, TO DC ZOSYN, CONTINUE VANCOMYCIN ORDERED. RECEIVED CALL FROM PHARMACY AND SPOKE WITH JOSE J Garza WITH RECOMMENDATION TO CONTINUE VANCOMYCIN 750MG IV, TO START ON 07/10/18 AT 0600, AND FOR VANCOMYCIN TROUGH DRAW AT 07/10/18 AT 0500 PRIOR TO 0600 DOSE OF VANCOMYCIN. INFECTIOUS DISEASE AND DR. ASHRAF GAVE OK WITH VANCOMYCIN ORDERS. PLACED CALL TO [facility] AND SPOKE WITH RUSSELL WASHINGTON AND GAVE REPORT, MADE AWARE OF ATB ORDERS AND VANCOMYCIN DOSE/THROUGH. PATIENT MADE AWARE AND VERBALIZED UNDERSTANDING. WILL CONTINUE TO MONITOR
--- NOTE | 2018-07-09 18:28 | NUR ---
MS RN NOTES PATIENT FOR DISCHARGE TODAY. DISCHARGE INSTRUCTIONS AND EDUCATION PROVIDED TO PATIENT AND VERBALIZED UNDERSTANDING. NO REPORT OF MISSING BELONGINGS. PICCLINE CARD SENT WITH PATIENT ON DISCHARGE. IV REMOVED WITH MINIMAL BLEEDING NOTED. PRESSURE DRESSING PLACED ON IV SITE. PICC LINE IN PLACE, DRESSING IN PLACE. PATIENT LEFT UNIT AT 1800 VIA GURNEY IN STABLE CONDITION. NO CHANGES IN LOC NOTED. NO NEW SKIN BREAKDOWN NOTED. DRESSING ON LLE DRY AND INTACT, NO ACTIVE BLEEDING NOTED. MD AWARE OF DISCHARGE.
== END 2018-07-09 18:10 | DRG 711 ==
LOC: ER 11:07 → MED 14:27
PROC: 0SSN34Z Reposition Left Metatarsal-Phalangeal Joint with Internal Fixation Device, Percutaneous Approach (ICD-10-PCS; 2018-07-05)
PROC: 0SH Lower Joints, Insertion (ICD-10-PCS; 2018-07-05)
PROC: 0QBP0ZX Excision of Left Metatarsal, Open Approach, Diagnostic (ICD-10-PCS; 2018-07-05)
PROC: B548ZZA Ultrasonography of Superior Vena Cava, Guidance (ICD-10-PCS; 2018-07-09)
PROC: 0HRNXK4 Replacement of Left Foot Skin with Nonautologous Tissue Substitute, Partial Thickness, External Approach (ICD-10-PCS; 2018-07-09)
PROC: 02HV33Z Insertion of Infusion Device into Superior Vena Cava, Percutaneous Approach (ICD-10-PCS; 2018-07-09)
PROC: 0KBW0ZZ Excision of Left Foot Muscle, Open Approach (ICD-10-PCS; principal; 2018-07-09 07:30)
DX: T81.49XA Infection following a procedure, other surgical site, initial encounter (principal); L89.159 Pressure ulcer of sacral region, unspecified stage; N17.9 Acute kidney failure, unspecified; E11.22 Type 2 diabetes mellitus with diabetic chronic kidney disease; E11.42 Type 2 diabetes mellitus with diabetic polyneuropathy; M86.9 Osteomyelitis, unspecified; E83.51 Hypocalcemia; E11.51 Type 2 diabetes mellitus with diabetic peripheral angiopathy without gangrene; E11.69 Type 2 diabetes mellitus with other specified complication; E11.621 Type 2 diabetes mellitus with foot ulcer; D64.9 Anemia, unspecified; S93.105A Unspecified dislocation of left toe(s), initial encounter; L97.529 Non-pressure chronic ulcer of other part of left foot with unspecified severity; I13.0 Hypertensive heart and chronic kidney disease with heart failure and stage 1 through stage 4 chronic kidney disease, or unspecified chronic kidney disease; K21.9 Gastro-esophageal reflux disease without esophagitis; N18.9 Chronic kidney disease, unspecified; N40.0 Benign prostatic hyperplasia without lower urinary tract symptoms; E03.9 Hypothyroidism, unspecified; D72.829 Elevated white blood cell count, unspecified; Z89.412 Acquired absence of left great toe; J44.9 Chronic obstructive pulmonary disease, unspecified; I50.9 Heart failure, unspecified; E78.5 Hyperlipidemia, unspecified; M10.9 Gout, unspecified; E11.65 Type 2 diabetes mellitus with hyperglycemia
CPT/HCPCS: 36415; 36569; 71045-TC; 80048-TC; 80076-TC; 80202-TC; 82962-TC; 83735-TC; 84100-TC; 85025-TC; 85730-TC; 87040-TC; 87070-TC; 87081-TC; 88305-TC; 88311-TC; 88312-TC; A4606; A6248; A6253; A6402; A6403; C1751; J1815; J2543; J2704; J3010; J3370; J3490; J7050; J7060; Z7610